=== PATIENT | male | born 1995 | race African-American/Black ===

== ENCOUNTER 2017-01-03 00:40 | Emergency (ER) | payer BC, OTHER ==
[~2017-01-03] VITALS: Ht 185.4 cm; Wt 68.0 kg
[2017-01-03 01:03] VITALS: BP 125/69
== END 2017-01-03 05:04 | disposition left against medical advice (07) ==
LOC: EDBD 00:40 → ER 00:40
DX: F41.9 Anxiety disorder, unspecified (principal); R06.4 Hyperventilation; Z53.21 Procedure and treatment not carried out due to patient leaving prior to being seen by health care provider
CPT/HCPCS: 93005